=== PATIENT | male | born 1990 | race Caucasian/White ===

== ENCOUNTER 2018-06-16 12:18 | Emergency (ER) | payer SELFPAY ==
[~2018-06-16] VITALS: Ht 190.5 cm; Wt 89.8 kg
[2018-06-16 12:26] VITALS: BP 144/83
[2018-06-16] MEDS ORDERED: IPRATRPIUM/ALBUTEROL 0.5/2.5MG 3 ML NEBU. NEB ONE (12:30)
--- NOTE | 2018-06-16 12:38 | PHYS DOC ---
Past Medical History Past Medical History: No Pertinent History Past Surgical History: No Surgical History Smoking: Cigarettes, Less than 1pk/day Adult General Chief Complaint Chief Complaint: COUGH HPI HPI Patient is a 27 year old cough, fever for the past 2 weeks. It improved a week ago but is been getting worse again over the past 3-4 days. Subjective fever. No home temperature taken. There is nasal congestion present. Diffuse muscle aches. No recent travel. No nausea or vomiting. No chest pain or palpitations. No significant relief with [id number] cough/cold medicine[] Review of Systems Review of Systems Constitutional: See history of present illness[] Eyes: Denies change in visual acuity, redness, or eye pain [] HENT: See history of present illness[] Respiratory: See history of present illness[] Cardiovascular: No chest pain or palpitations[] GI: Denies abdominal pain, nausea, vomiting, bloody stools or diarrhea [] : Denies dysuria or hematuria [] Musculoskeletal: See history of present illness[] Integument: Denies rash or skin lesions [] Neurologic: Denies headache, focal weakness or sensory changes [] Endocrine: Denies polyuria or polydipsia [] All other systems were reviewed and found to be within normal limits, except as documented in this note. Current Medications Current Medications Current Medications Medications (Trade) Dose Ordered Sig/Pete Start Time Stop Time Status Last Admin Dose Admin Albuterol/ Ipratropium (Duoneb) 3 ml 1X ONCE 06/16/18 12:30 06/16/18 12:31 DC 06/16/18 12:37 3 ML Allergies Allergies Allergies Coded Allergies Type Severity Reaction Last Updated Verified No Known Drug Allergies 06/16/18 No Physical Exam Physical Exam Constitutional: Well developed, well nourished, no acute distress, non-toxic appearance. [] HENT: Normocephalic, atraumatic, bilateral external ears normal, oropharynx moist, no oral exudates, nose with clear rhinorrhea. [] Eyes: PERRLA, EOMI, conjunctiva normal, no discharge. [] Neck: Normal range of motion, no tenderness, supple, no stridor. [] Cardiovascular:Heart rate regular rhythm, no murmur [] Lungs & Thorax: Bilateral lungs with coarse breath sounds[] Abdomen: Bowel sounds normal, soft, no tenderness, no masses, no pulsatile masses. [] Skin: Warm, dry, no erythema, no rash. [] Back: No tenderness, no CVA tenderness. [] Extremities: No tenderness, no cyanosis, no clubbing, ROM intact, no edema. [] Neurologic: Alert and oriented X 3, normal motor function, normal sensory function, no focal deficits noted. [] Psychologic: Affect normal, judgement normal, mood normal. [] Current Patient Data Vital Signs Vital Signs Date Time Temp Pulse Resp B/P (MAP) Pulse Ox O2 Delivery O2 Flow Rate FiO2 06/16/18 12:39 Room Air 06/16/18 12:26 98.5 110 18 144/83 (103) 96 98.5 EKG EKG [] Radiology/Procedures Radiology/Procedures PA and lateral chest. HISTORY: Cough, short of air, fever PA and lateral views were taken of the chest. Lungs are clear. Heart is normal in size. There is no pleural effusion. IMPRESSION: 1. No acute chest disease.[] Course & Med Decision Making Course & Med Decision Making Pertinent Labs and Imaging studies reviewed. (See chart for details) ED course: Patient arrived, was placed in bed, in tolerated exam well. He received breathing treatment after which his breath sounds were improved. He was transported to and from x-ray with any complications. After the return of the imaging findings these were discussed with the patient who voiced understanding. All questions were answered. Patient was discharged in improved condition. Medical decision making: There is no evidence of pneumonia, pneumothorax, no PE risk factors, does not appear to be an acute coronary syndrome. Feels his symptoms are most consistent with an acute bronchitis. This may be influenza however he is beyond the time frame for starting the antivirals so influenza test was not performed since it would not change treatment.[] Dragon Disclaimer Dragon Disclaimer This electronic medical record was generated, in whole or in part, using a voice recognition dictation system. Departure Departure Impression: Primary Impression: Acute bronchitis Disposition: 01 HOME, SELF-CARE Condition: IMPROVED Patient Instructions: Acute Bronchitis Additional Instructions: Follow-up with your regular doctor in 2 days. If you do not have one a list of local clinics will be provided for you. Drink plenty of fluids. Take the medication as prescribed. Return to the ER if worsening difficulty breathing or any other concerns. Scripts Albuterol Sulfate (VENTOLIN HFA INHALER) 18 Gm Hfa.aer.ad 2 PUFF INH Q4HRS for FOR ASTHMA, #1 INHALER 0 Refills Prov: OSMAR TSAI DO 06/16/18 D-Methorphan Hb/Prometh Hcl (PROMETHAZINE-DM SYRUP) 118 Ml Syrup 5 ML PO PRN Q4HRS, #120 ML Prov: OSMAR TSAI DO 06/16/18 Problem Qualifiers Primary Impression: Acute bronchitis Bronchitis organism: unspecified organism Qualified Codes: J20.9 - Acute bronchitis, unspecified OSMAR TSAI DO Jun 16, 2018 12:38
--- NOTE | 2018-06-16 12:59 | RAD ---
PA and lateral chest. HISTORY: Cough, short of air, fever PA and lateral views were taken of the chest. Lungs are clear. Heart is normal in size. There is no pleural effusion. IMPRESSION: 1. No acute chest disease. Electronically signed by: Per Gentile MD (06/16/2018 12:56 PM) [facility]
[2018-06-16] MEDS ORDERED: D-ME118S2 PO (13:36)
[2018-06-16] MEDS ORDERED: VENTOLIN HFA18 GM INH (13:36)
== END 2018-06-16 13:50 | disposition home or self-care (01) ==
LOC: ER 12:18
DX: J20.9 Acute bronchitis, unspecified (principal); M79.18 Myalgia, other site; F17.210 Nicotine dependence, cigarettes, uncomplicated
CPT/HCPCS: 71046; 94640; 99283; J7620